=== PATIENT | female | born 1945 | race Caucasian/White ===

== ENCOUNTER 2016-12-19 15:17 | Emergency (ER) | payer MEDICARE, BC ==
[2016-12-19 15:36] VITALS: BP 134/72
--- NOTE | 2016-12-19 16:46 | UC ---
Eye Complaint HPI - HPI Summary HPI Summary: This is a 71 yo female with RA, HTN and Sjogrens who presents with c/o R eye drainage, itching and blurring. She denies eye pain. She has chronic dry eyes related to Sjogrens. Denies fever, ear pain, ST or congestion. She also notes intermittent redness, edema and drainage from her ear piercing on the R side. This has been ongoing for the last 9 months. - History of Current Complaint Chief Complaint: UCEye Stated Complaint: EYE IRRITATION,EAR SKIN SWELLING - Allergies/Home Medications Allergies/Adverse Reactions: Allergies Allergy/AdvReac Type Severity Reaction Status Date / Time Celecoxib [From Celebrex] Allergy Rash Verified 12/19/16 15:38 Penicillins Allergy Rash Verified 12/19/16 15:38 Sulfa Antibiotics Allergy Rash Verified 12/19/16 15:38 Home Medications: Home Medications Ascorbic Acid TAB* [Vitamin C TAB*] 500 mg PO DAILY 12/19/16 [History Confirmed 12/19/16] Aspirin [Aspirin 81 MG TAB] 81 mg PO DAILY 12/19/16 [History Confirmed 12/19/16] Calcium Citrate-Vitamin D [Citracal + D3 Maximum 315-250 mg-Unit] 1 tab PO DAILY 12/19/16 [History Confirmed 12/19/16] Golimumab [Simponi] 50 mg SC MONTHLY 12/19/16 [History Confirmed 12/19/16] Metoprolol Tartrate TAB* [Lopressor TAB*] 50 mg PO DAILY 12/19/16 [History Confirmed 12/19/16] Mirabegron (NF) [Myrbetriq (NF)] 50 mg PO DAILY 12/19/16 [History Confirmed 08/01] Multiple Vitamins W/ Minerals [Centrum Silver 50+Women] 1 tab PO DAILY 12/19/16 [History Confirmed 12/19/16] [place]-3 Fatty Acids [Fish Oil] 1,500 mg PO DAILY 12/19/16 [History Confirmed 08/01] PMH/Surg Hx/FS Hx/Imm Hx Previously Healthy: No - HTN, RA, Sjogrens - Surgical History Surgical History: Yes Surgery Procedure, Year, and Place: 2 c-sections. laparscopy and laparotomy for infertility - Family History Known Family History: Positive: None - Social History Alcohol Use: Rare Substance Use Type: None Smoking Status (MU): Never Smoked Tobacco Review of Systems Constitutional: Negative Skin: Negative Eyes: Blurred Vision, Drainage, Eye Redness ENT: Negative Respiratory: Negative Cardiovascular: Negative Gastrointestinal: Negative Genitourinary: Negative Motor: Negative Neurovascular: Negative Musculoskeletal: Negative Neurological: Negative Psychological: Negative All Other Systems Reviewed And Are Negative: Yes Physical Exam Triage Information Reviewed: Yes Appearance: Well-Appearing Vital Signs: Initial Vital Signs Temp 98.9 F 12/19/16 15:29 Pulse 80 12/19/16 15:29 Resp 16 12/19/16 15:29 BP 134/72 12/19/16 15:29 Pulse Ox 99 12/19/16 15:29 Vital Signs Reviewed: Yes Eyes: Positive: Conjunctiva Inflamed, Discharge - mild dc ENT: Positive: Pharynx normal, TMs normal. Negative: Pharyngeal erythema, Tonsillar swelling, Tonsillar exudate Neck: Positive: Supple, Nontender, No Lymphadenopathy Respiratory: Positive: Lungs clear. Negative: Crackles, Rhonchi, Wheezing Cardiovascular: Positive: RRR, No Murmur Abdomen Description: Positive: Nontender, Soft Musculoskeletal Exam: Normal Musculoskeletal: Positive: Strength Intact Neurological: Positive: Alert, Muscle Tone Normal Psychological Exam: Normal Skin: Positive: Other - skin surrounding R ear piercing is mildly inflamed and flaking. No gross erythema or purulent drainage. Eye Complaint Course/Dx - Course Course Of Treatment: This is a 71 yo female with c/o R eye drainage and inflammation along with intermittent inflammation of the R ear lobe. Treat for R eye conjunctivitis. Recommend removing earring until skin heals. - Differential Dx/Diagnosis Differential Diagnosis/HQI/PQRI: Conjunctivitis, Periorbital Cellulitis, Uveitis Provider Diagnoses: 1. R conjunctivitis. 2. Contact dermatitis - R earlobe Discharge - Discharge Plan Condition: Stable Disposition: HOME Prescriptions: Ciprofloxacin 0.3% OPTH.ZAYRA* [Cipro 0.3% Opth*] 1 drop RIGHT EYE Q2H #1 btl Patient Education Materials: Conjunctivitis (ED) Referrals: No Primary Care Phys,NOPCP [Primary Care Provider] - Additional Instructions: Activity: as tolerated Instructions: 1. Use antibiotic drops as directed 2. Follow up with your PCP if symptoms persist
== END 2016-12-19 16:56 | disposition home or self-care (01) ==
LOC: UCEAST 15:17
DX: H10.31 Unspecified acute conjunctivitis, right eye (principal); L25.9 Unspecified contact dermatitis, unspecified cause; I10 Essential (primary) hypertension; M06.9 Rheumatoid arthritis, unspecified; Z79.82 Long term (current) use of aspirin; Z88.0 Allergy status to penicillin; Z88.2 Allergy status to sulfonamides; Z88.8 Allergy status to other drugs, medicaments and biological substances
CPT/HCPCS: 99212; G0463

== ENCOUNTER 2017-10-17 01:18 | Emergency (ER) | payer MEDICARE, BC ==
--- NOTE | 2017-10-17 01:40 | ED ---
Upper Extremity Pain - HPI Summary HPI Summary: Complains of pain and stiffness at MCP joints of left thumb and left index finger starting yesterday, with pain radiating down towards wrist with extension and flexion of thumb and index finger. Denies trauma. Has been doing a lot of gardening. Denies any other pain or symptoms. History of RA, thoracic aneurysm, asthma, A. fib. Nonsmoker. Has not taken any medications or used ice. - History of Current Complaint Chief Complaint: EDExtremityUpper Stated Complaint: LT HAND PAIN Time Seen by Provider: 10/17/17 01:28 Hx Obtained From: Patient Mechanism Of Injury: Unknown Onset/Duration: Started Hours Ago Timing: Constant Severity Initially: Mild Severity Currently: Moderate Pain Location: Hand, Finger Character: Aching, Throbbing Aggravating Factor(s): Flexion, Extension Alleviating Factor(s): Nothing Associated Signs & Symptoms: Positive: Negative - Risk Factors Septic Arthritis Risk Factor: Pre-existing Joint Disease - Allergies/Home Medications Allergies/Adverse Reactions: Allergies Allergy/AdvReac Type Severity Reaction Status Date / Time MS Celecoxib [From Celebrex] Allergy Rash Verified 10/17/17 01:27 MS Penicillins [Penicillins] Allergy Rash Verified 10/17/17 01:27 MS Sulfa Antibiotics Allergy Rash Verified 10/17/17 01:27 [Sulfa Antibiotics] PMH/Surg Hx/FS Hx/Imm Hx Endocrine/Hematology History: Denies: Hx Anticoagulant Therapy Cardiovascular History: Reports: Hx Hypertension History: Denies: Hx Dialysis Musculoskeletal History: Denies: Hx Osteoporosis Neurological History: Denies: Hx CVA - Surgical History Surgery Procedure, Year, and Place: 2 c-sections. laparscopy and laparotomy for infertility Infectious Disease History: No Infectious Disease History: Denies: Traveled Outside the [place] in Last 30 Days - Family History Known Family History: Positive: None - Social History Alcohol Use: Rare Substance Use Type: Reports: None Smoking Status (MU): Never Smoked Tobacco Review of Systems Constitutional: Negative Eyes: Negative ENT: Negative Cardiovascular: Negative Respiratory: Negative Gastrointestinal: Negative Genitourinary: Negative Positive: Arthralgia Skin: Negative Neurological: Negative Psychological: Normal All Other Systems Reviewed And Are Negative: Yes Physical Exam - Summary Physical Exam Summary: No erythema, swelling, extra warmth, deformity, ecchymosis noted to left hand or joints of left thumb or index finger or wrist.. PMS intact distally. Patient can flex and extend both thumb and index finger but with pain. Patient can flex and extend left wrist but causes pain and left thumb. Triage Information Reviewed: Yes Vital Signs On Initial Exam: Initial Vitals Temp Pulse Resp BP Pulse Ox 97.8 F 64 17 160/84 97 10/17/17 01:23 10/17/17 01:23 10/17/17 01:23 10/17/17 01:23 10/17/17 01:23 Vital Signs Reviewed: Yes Appearance: Positive: Well-Appearing Skin: Positive: Warm Head/Face: Positive: Normal Head/Face Inspection Eyes: Positive: Normal Neck: Positive: Supple Respiratory/Lung Sounds: Positive: Clear to Auscultation Cardiovascular: Positive: Normal Abdomen Description: Positive: Nontender Musculoskeletal: Positive: Normal Neurological: Positive: Normal Psychiatric: Positive: Normal AVPU Assessment: Alert - [place] Coma Scale Best Eye Response: 4 - Spontaneous Best Motor Response: 6 - Obeys Commands Best Verbal Response: 5 - Oriented Coma Scale Total: 15 Diagnostics - Vital Signs Vital Signs Temp Pulse Resp BP Pulse Ox 10/17/17 01:23 97.8 F 64 17 160/84 97 - Laboratory Lab Statement: Any lab studies that have been ordered have been reviewed, and results considered in the medical decision making process. - Radiology hand Xray Interpretation: No Acute Changes Radiology Interpretation Completed By: ED Physician Course/Dx - Course Course Of Treatment: Complains of pain and stiffness at MCP joints of left thumb and left index finger starting yesterday, with pain radiating down towards wrist with extension and flexion of thumb and index finger. Denies trauma. Has been doing a lot of gardening. Denies any other pain or symptoms. History of RA, thoracic aneurysm, asthma, A. fib. Nonsmoker. Has not taken any medications or used ice. No erythema, swelling, extra warmth, deformity, ecchymosis noted to left hand or joints of left thumb or index finger or wrist.. PMS intact distally. Patient can flex and extend both thumb and index finger but with pain. Patient can flex and extend left wrist but causes pain and left thumb. X-ray hand negative for acute process. Likely symptomatic patient's RA. Rx for tramadol. Follow-up with rheumatology - Diagnoses Provider Diagnoses: Hand pain, left Discharge - Sign-Out/Discharge Documenting (check all that apply): Discharge/Admit/Transfer - Discharge Plan Condition: Stable Disposition: HOME Patient Education Materials: Arthralgia (ED) Referrals: Scott Dorado MD [Primary Care Provider] - Additional Instructions: Follow-up with your ob/gyn physician. Return to the ED for any new or worsening symptoms - Billing Disposition and Condition Condition: STABLE Disposition: Home
[2017-10-17] MEDS ORDERED: traMADol TAB* 50 MG PO ONE (03:12)
[2017-10-17] MEDS ORDERED: Ibuprofen TAB* 600 MG PO ONE (03:20)
[2017-10-17 03:46] VITALS: BP 147/91
--- NOTE | 2017-10-17 07:41 | RAD ---
HISTORY: thumb and index MCP joint pain COMPARISONS: None VIEWS: 4, Frontal, lateral, and oblique views of the left hand. Evaluation of the proximal phalanx of the fourth digit is limited by metallic jewelry FINDINGS: BONE DENSITY: Normal. BONES: There is no displaced fracture. JOINTS: There is no arthropathy. ALIGNMENT: There is no dislocation. SOFT TISSUES: Unremarkable. OTHER FINDINGS: None. IMPRESSION: NO ACUTE OSSEOUS INJURY. IF SYMPTOMS PERSIST, RECOMMEND REPEAT IMAGING.
== END 2017-10-17 03:45 | disposition home or self-care (01) ==
LOC: ED 01:18
DX: M25.542 Pain in joints of left hand (principal); M06.9 Rheumatoid arthritis, unspecified; I71.2 Thoracic aortic aneurysm, without rupture; I48.91 Unspecified atrial fibrillation; J45.909 Unspecified asthma, uncomplicated; Z88.0 Allergy status to penicillin; Z88.3 Allergy status to other anti-infective agents; Z88.8 Allergy status to other drugs, medicaments and biological substances
CPT/HCPCS: 99282; A9270-GY

== ENCOUNTER 2017-11-14 15:11 | Emergency (ER) | payer MEDICARE, BC ==
[2017-11-14] MEDS ORDERED: Tetan/Diph/Pertus SYR(Tdap)* 0.5 ML SYR(BOOSTRIX) use SYR IM ONE (16:10)
--- NOTE | 2017-11-14 17:25 | UC ---
Laceration HPI - HPI Summary HPI Summary: 72 y/o female presents to the urgent care c/o laceration of the side of her RT thumb s/p slicing a cucumber w/ a slicer around 1 hr ago today. Pt is unsure of last Tetanus vaccine. Pt states bleeding stopped w/ pressure. Pain is 1/10 and has FROM of thumb. Pt denies numbness or tingling sensation over the Rt thumb, hand pain, SOB, chest pain, abdominal pain, N/V/D - History Of Current Complaint Chief Complaint: UCLaceration Stated Complaint: THUMB LAC Time Seen by Provider: 11/14/17 16:53 Hx Obtained From: Patient Laceration Location: Finger - Rt thumb Mechanism Of Injury: Sharp Trauma Onset/Duration: Sudden Onset, Lasting Hours - 1 hr Severity: Mild Pain Intensity: 1 Pain Scale Used: 0-10 Numeric Aggravating Factors: Other: - touch Related History: Dominant Hand Right - Allergies/Home Medications Allergies/Adverse Reactions: Allergies Allergy/AdvReac Type Severity Reaction Status Date / Time celecoxib [From Celebrex] Allergy Rash Verified 11/14/17 15:38 Penicillins Allergy Rash Verified 11/14/17 15:38 Sulfa (Sulfonamide Allergy Rash Verified 11/14/17 15:38 Antibiotics) Home Medications: Home Medications Ciclesonide 80 MCG MDI (NF) [Alvesco 80 MDI (NF)] 1 puff INH BID 11/14/17 [ History Confirmed 11/14/17] Fluticasone NASAL SPRAY 50MCG* [Flonase NASAL SPRAY 50MCG*] 11/14/17 [History] Folic Acid TAB* [Folvite TAB*] 1 mg PO DAILY 11/14/17 [History Confirmed ] Methotrexate [Xatmep] 2.5 mg PO 11/14/17 [History] PMH/Surg Hx/FS Hx/Imm Hx Previously Healthy: Yes Other Endocrine History: RZ Cardiovascular History: Hypertension, Atrial Fibrillation Respiratory History: Asthma Other History Of: Negative For: Anticoagulant Therapy - Surgical History Surgical History: Yes Surgery Procedure, Year, and Place: 2 c-sections. laparscopy and laparotomy for infertility - Family History Known Family History: Positive: Cardiac Disease, Hypertension, Diabetes - Social History Occupation: Retired Lives: With Family Alcohol Use: Occasionally Substance Use Type: None Smoking Status (MU): Never Smoked Tobacco - Immunization History Hx Tetanus, Diphtheria Vaccination: No Review of Systems Constitutional: Negative Skin: Other - laceration of Rt thumb s/p cutting a cucumber w/ slicer Eyes: Negative ENT: Negative Respiratory: Negative Cardiovascular: Negative Gastrointestinal: Negative Genitourinary: Negative Motor: Negative Neurovascular: Negative Musculoskeletal: Other: - Rt thumb pain s/p laceration Neurological: Negative Psychological: Negative Is Patient Immunocompromised?: No All Other Systems Reviewed And Are Negative: Yes Physical Exam - Summary Physical Exam Summary: Vital Signs Reviewed: Yes General: well developed, well nourished female sitting in the examining table w/ o any apparent distress Eye Exam: Normal Eyes: Positive: Conjunctiva Clear - PERRLA, EOMI, fundi grossly normal ENT: Positive: Normal ENT inspection, Hearing grossly normal, Pharynx normal, TMs normal Neck: Positive: Supple, Nontender, No Lymphadenopathy Respiratory: Positive: Chest non-tender, Lungs clear, Normal breath sounds, No respiratory distress Cardiovascular: Positive: RRR, No Murmur, Pulses Normal, Brisk Capillary Refill Abdomen Description: Positive: Nontender, No Organomegaly, Soft. Negative: CVA Tenderness (R), CVA Tenderness (L) Bowel Sounds: Positive: Present Musculoskeletal: Positive: Strength Intact, ROM Intact, No Edema Neurological: Positive: Alert, Muscle Tone Normal Psychological Exam: Normal Skin: Positive:superficial avulse laceration semilunar in shape on lateral aspect of distal Rt thumb about 1.5 cm in size, bleeding stopped, no foreign body observed. mild tenderness to palpation, FROM of RT thumb and hand, sensation intact, capillary refill brisk, and pulses WNL. Triage Information Reviewed: Yes Vital Signs: Initial Vital Signs Temp 97.9 F 11/14/17 15:34 Pulse 62 11/14/17 15:34 Resp 18 11/14/17 15:34 BP 128/70 11/14/17 15:34 Pulse Ox 100 11/14/17 15:34 Laceration Repair - Laceration Repair 1 Description: Irregular - superficial avulse laceration semilunar in shape on lateral aspect of distal Rt thumb Laceration Size After Repair: Length (cm) - 1.5cm Modified For Repair: No Cleansing Completed Via Routine Prep: Yes Irrigation With Pressure Irrigation Device: Yes Closure Material: Skin Adhesive, SteriStrips - 3 Closure Method: Single Layer Suture Of: Skin Laceration Course/Dx - Course/Dx Course Of Treatment: 72 y/o female presents to the urgent care c/o laceration of the side of her RT thumb s/p slicing a cucumber w/ a slicer around 1 hr ago today. Pt is unsure of last Tetanus vaccine. Pt states bleeding stopped w/ pressure. Pain is 1/10 and has FROM of thumb. Pt denies numbness or tingling sensation over the Rt thumb, hand pain, SOB, chest pain, abdominal pain, N/V/ D.Hx obtained.LACERATION PROCEDURE NOTE: . Copious irrigation was done with saline and the wound explored. There was no FB or deep structure injury noted. wound cleaned w/ Iodine swabs. Laceration closed w/ skin adhesive and 3 steri- strips. Wound dressed w/ sterile gauze.The Pt tolerated the procedure well without adverse effects. Neurovascular intact and FROM of Rt thumb. Tdap ordered and applied by nurse. Pt advised if any signs of infection develop to immediately return to the urgent care of PCP for further management and treatment. Pt understood and agreed and left the clinic ambulating A&Ox3. - Differential Dx - Laceration/Wound Differental Diagnoses: Abrasion, Avulsion, Dehiscence, Laceration, Puncture Wound, Tendon Laceration Provider Diagnoses: 1- Rt thumb laceration repair Discharge - Sign-Out/Discharge Documenting (check all that apply): Patient Departure - D/c home - Discharge Plan Condition: Stable Disposition: HOME Prescriptions: Bacitracin OINTMENT* 1 applic TOPICAL BID #1 tube Patient Education Materials: Laceration (ED), Skin Adhesive Care (ED) Referrals: Amish De La Cruz DO [Primary Care Provider] - 1 Week Additional Instructions: 1-Please apply topical antibiotic over the wound after the skin adhesive comes off. Keep wound clean and dry 2-Take Tylenol PO q6-8hrs prn for pain or swelling. 4- If you develop fever or redness around your thumb please return to the Urgent care or f/u w/ your PCP. Per institutional requirements, I have reviewed the chart, however, I was not consulted specifically or made aware of this patient by the above midlevel provider. I did not personally evaluate, interact with , or disposition this patient. - Billing Disposition and Condition Condition: STABLE Disposition: Home
[2017-11-14 18:06] VITALS: BP 130/72
== END 2017-11-14 17:45 | disposition home or self-care (01) ==
LOC: UCEAST 15:11
DX: S61.011A Laceration without foreign body of right thumb without damage to nail, initial encounter (principal); I10 Essential (primary) hypertension; Z88.1 Allergy status to other antibiotic agents; Z88.0 Allergy status to penicillin; Z88.2 Allergy status to sulfonamides; W45.8XXA Other foreign body or object entering through skin, initial encounter; Y92.9 Unspecified place or not applicable; Y93.89 Activity, other specified
CPT/HCPCS: 12001; 90715; 99211; G0463

== ENCOUNTER 2018-04-17 22:12 | Emergency (ER) | payer MEDICARE, BC ==
[2018-04-17 22:42] LABS: ABS Basophils 0 10^3/ul (0-0.2); ABS Lymphocytes 0.8 10^3/ul (1.0-4.8); ABS Monocytes 0.1 10^3/ul (0-0.8); ABS Neutrophils 3.7 10^3/ul (1.5-7.7); ABS Nucleated RBC 0 10^3/ul; Eosinophil % 18.3 %; Hematocrit 41 % (35-47); Hemoglobin 13.7 g/dl (12.0-16.0); Lymphocyte % 14.7 %; Mean Corpuscular HGB Conc 33 g/dl (31-36); Mean Corpuscular Hemoglobin 30 pg (27-31); Mean Corpuscular Volume 89 fL (80-97); Mean Platelet Volume 8.4 fL (7.4-10.4); Nucleated Red Blood Cells % 0.1; Platelet Count 314 10^3/ul (150-450); Red Blood Count 4.64 10^6/ul (4.00-5.40); Red Cell Distribution Width 14 % (10.5-15); White Blood Count 5.7 10^3/ul (3.5-10.8)
[2018-04-17] MEDS ORDERED: Morphine VIAL* 4 MG/ML VIAL (1 ml vial) IV ONE (22:51)
[2018-04-17 22:52] LABS: INR 0.93 (0.77-1.02)
[2018-04-17 22:58] LABS: Albumin 3.5 g/dL (3.2-5.2); Albumin/Globulin Ratio 0.8 (1-3); BUN/Creatinine Ratio 35.4 (8-20); C Reactive Protein 15.76 mg/L (<8.01); Calcium 9.7 mg/dL (8.6-10.3); EGFR Non-African American 90.1 (>60); Globulin 4.2 g/dL (2-4); Potassium 4.6 mmol/L (3.5-5.0); Total Bilirubin 0.3 mg/dL (0.2-1.0); Total Protein 7.7 g/dL (6.4-8.9)
--- NOTE | 2018-04-17 23:07 | ED ---
Abdominal Pain/Male - HPI Summary HPI Summary: Pt is a 72 y/o female who presents to the ED c/o diffuse abdominal pain. She states the pain suddenly came on at 19:00 tonight, and has continued to get worse. She also c/o N/V. Pt denies any fever, diarrhea, constipation, dysuria, hematuria, CP, or SOB. PSHx c-sections, laparoscopies, fallopian tube removal. - History of Current Complaint Chief Complaint: EDAbdPain Stated Complaint: ABD PAIN Time Seen by Provider: 04/17/18 22:27 Hx Obtained From: Patient Onset/Duration: Sudden Onset, Lasting Hours - 19:00, Worse Since Timing: Constant Severity Currently: Moderate Pain Intensity: 5 Pain Scale Used: 0-10 Numeric Location: Diffuse Aggravating Factor(s): Nothing Alleviating Factor(s): Nothing Associated Signs And Symptoms: Positive: Negative - Allergies/Home Medications Allergies/Adverse Reactions: Allergies Allergy/AdvReac Type Severity Reaction Status Date / Time celecoxib [From Celebrex] Allergy Rash Verified 01/24/18 11:52 Penicillins Allergy Rash Verified 01/24/18 11:52 Sulfa (Sulfonamide Allergy Rash Verified 01/24/18 11:52 Antibiotics) PMH/Surg Hx/FS Hx/Imm Hx Endocrine/Hematology History: Denies: Hx Anticoagulant Therapy, Hx Diabetes, Hx Anemia Cardiovascular History: Reports: Hx Hypertension - during GI History: Denies: Hx Jaundice History: Denies: Hx Dialysis Musculoskeletal History: Denies: Hx Osteoporosis Neurological History: Denies: Hx CVA - Surgical History Surgery Procedure, Year, and Place: 2 c-sections. laparscopy and laparotomy for infertility. fallopian tube removal Infectious Disease History: No Infectious Disease History: Denies: Traveled Outside the [place] in Last 30 Days - Family History Known Family History: Positive: Cardiac Disease, Hypertension, Diabetes - Social History Alcohol Use: Rare Hx Substance Use: No Substance Use Type: Reports: None Hx Tobacco Use: No Smoking Status (MU): Never Smoked Tobacco Review of Systems Negative: Fever Negative: Chest Pain Negative: Shortness Of Breath Positive: Abdominal Pain, Vomiting, Nausea. Negative: Diarrhea, Other - constipation Negative: burning, hematuria All Other Systems Reviewed And Are Negative: Yes Physical Exam - Summary Physical Exam Summary: Appearance: Well appearing, no pain distress Skin: warm, dry, reflects adequate perfusion Head/face: normal Eyes: EOMI, THELMA ENT: mucous membranes moist Neck: supple, non-tender Respiratory: CTA, breath sounds present Cardiovascular: RRR, pulses symmetrical Abdomen: soft, left CVA tenderness, suprapubic tenderness Bowel Sounds: present Musculoskeletal: normal, strength/ROM intact Neuro: normal, sensory motor intact, A&Ox3 Triage Information Reviewed: Yes Vital Signs On Initial Exam: Initial Vitals Temp Pulse Resp BP Pulse Ox 98.1 F 62 16 145/74 98 04/17/18 22:15 04/17/18 22:15 04/17/18 22:15 04/17/18 22:15 04/17/18 22:15 Vital Signs Reviewed: Yes Diagnostics - Vital Signs Vital Signs Temp Pulse Resp BP Pulse Ox 04/17/18 22:15 98.1 F 62 16 145/74 98 - Laboratory Lab Results: Lab Results 04/17/18 04/17/18 04/17/18 Range/Units 22:34 22:34 22:34 WBC 5.7 (3.5-10.8) 10^3/ul RBC 4.64 (4.00-5.40) 10^6/ul Hgb 13.7 (12.0-16.0) g/dl Hct 41 (35-47) % MCV 89 (80-97) fL MCH 30 (27-31) pg MCHC 33 (31-36) g/dl RDW 14 (10.5-15) % Plt Count 314 (150-450) 10^3/ul MPV 8.4 (7.4-10.4) fL Neut % (Auto) 64.2 % Lymph % (Auto) 14.7 % Webb % (Auto) 2.5 % Eos % (Auto) 18.3 % Baso % (Auto) 0.3 % Absolute Neuts (auto) 3.7 (1.5-7.7) 10^3/ul Absolute Lymphs (auto) 0.8 L (1.0-4.8) 10^3/ul Absolute Monos (auto) 0.1 (0-0.8) 10^3/ul Absolute Eos (auto) 1.0 H (0-0.6) 10^3/ul Absolute Basos (auto) 0 (0-0.2) 10^3/ul Absolute Nucleated RBC 0 10^3/ul Nucleated RBC % 0.1 INR (Anticoag Therapy) 0.93 (0.77-1.02) Sodium 139 (135-145) mmol/L Potassium 4.6 (3.5-5.0) mmol/L Chloride 102 (101-111) mmol/L Carbon Dioxide 30 (22-32) mmol/L Anion Gap 7 (2-11) mmol/L BUN 23 (6-24) mg/dL Creatinine 0.65 (0.51-0.95) mg/dL Est GFR ( Amer) 109.0 (>60) Est GFR (Non-Af Amer) 90.1 (>60) BUN/Creatinine Ratio 35.4 H (8-20) Glucose 116 H (70-100) mg/dL Lactic Acid (0.5-2.0) mmol/L Calcium 9.7 (8.6-10.3) mg/dL Total Bilirubin 0.30 (0.2-1.0) mg/dL AST 36 (13-39) U/L ALT 37 (7-52) U/L Alkaline Phosphatase 95 (34-104) U/L Total Creatine Kinase 203 (10-223) U/L Troponin I 0.00 (<0.04) ng/mL C-Reactive Protein 15.76 H (<8.01) mg/L B-Natriuretic Peptide (<=100) pg/mL Total Protein 7.7 (6.4-8.9) g/dL Albumin 3.5 (3.2-5.2) g/dL Globulin 4.2 H (2-4) g/dL Albumin/Globulin Ratio 0.8 L (1-3) Lipase 25 (11.0-82.0) U/L 04/17/18 04/17/18 Range/Units 22:34 22:34 WBC (3.5-10.8) 10^3/ul RBC (4.00-5.40) 10^6/ul Hgb (12.0-16.0) g/dl Hct (35-47) % MCV (80-97) fL MCH (27-31) pg MCHC (31-36) g/dl RDW (10.5-15) % Plt Count (150-450) 10^3/ul MPV (7.4-10.4) fL Neut % (Auto) % Lymph % (Auto) % Webb % (Auto) % Eos % (Auto) % Baso % (Auto) % Absolute Neuts (auto) (1.5-7.7) 10^3/ul Absolute Lymphs (auto) (1.0-4.8) 10^3/ul Absolute Monos (auto) (0-0.8) 10^3/ul Absolute Eos (auto) (0-0.6) 10^3/ul Absolute Basos (auto) (0-0.2) 10^3/ul Absolute Nucleated RBC 10^3/ul Nucleated RBC % INR (Anticoag Therapy) (0.77-1.02) Sodium (135-145) mmol/L Potassium (3.5-5.0) mmol/L Chloride (101-111) mmol/L Carbon Dioxide (22-32) mmol/L Anion Gap (2-11) mmol/L BUN (6-24) mg/dL Creatinine (0.51-0.95) mg/dL Est GFR ( Amer) (>60) Est GFR (Non-Af Amer) (>60) BUN/Creatinine Ratio (8-20) Glucose (70-100) mg/dL Lactic Acid 0.6 (0.5-2.0) mmol/L Calcium (8.6-10.3) mg/dL Total Bilirubin (0.2-1.0) mg/dL AST (13-39) U/L ALT (7-52) U/L Alkaline Phosphatase (34-104) U/L Total Creatine Kinase (10-223) U/L Troponin I (<0.04) ng/mL C-Reactive Protein (<8.01) mg/L B-Natriuretic Peptide 90 (<=100) pg/mL Total Protein (6.4-8.9) g/dL Albumin (3.2-5.2) g/dL Globulin (2-4) g/dL Albumin/Globulin Ratio (1-3) Lipase (11.0-82.0) U/L Result Diagrams: 04/17/18 22:34 04/17/18 22:34 Lab Statement: Any lab studies that have been ordered have been reviewed, and results considered in the medical decision making process. - CT CT A/P CT Interpretation Completed By: Radiologist Summary of CT Findings: 1. Splenic lesion, possibly hemangioma. 2. Small hiatus hernia. 3. Uterine fibroid. 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 5. Colonic diverticulosis. ED physician reviewed radiology report. - EKG 23:00 Cardiac Rate: NL - 60 bpm EKG Rhythm: Sinus Rhythm ST Segment: Normal Summary of EKG Findings: Nl axis, nl intervals, Q waves in inferior leads Re-Evaluation - Re-Evaluation First Eval Re-Evaluation Time: 00:26 Change: Unchanged Comment: Pt appears comfortable but states she still has pain. She was given a Toradol injection. Abdominal Pain Fem Course/Dx - Course Course Of Treatment: Nurse's notes reviewed. Patient with mild diffuse intermittent abdominal discomfort. Laboratories are benign. Urinalysis is negative. CT scan shows uterine fibroid but no acute inflammatory source. She was treated with Toradol with relief. She'll continue on NSAID at home and follow up with primary care physician. - Diagnoses Differential Diagnosis/HQI/PQRI: Appendicitis, Constipation, Diverticulitis, Gall Bladder Disease, Pancreatitis, Peptic Ulcer Disease, Renal Colic, Urinary Tract Infection Provider Diagnoses: Abdominal pain, Uterine fibroid Discharge - Sign-Out/Discharge Documenting (check all that apply): Patient Departure - Discharge - Discharge Plan Condition: Improved Disposition: HOME Patient Education Materials: Pelvic Pain in Women (ED), Uterine Artery Embolization for Fibroids (DC) Referrals: Amish De La Cruz DO [Primary Care Provider] - Additional Instructions: Tylenol, ibuprofen as needed for discomfort. Return with fever, increased pain , vomiting/diarrhea, worse or other concerns. Call first thing in the morning to schedule prompt follow-up with your family physician. - Billing Disposition and Condition Condition: IMPROVED Disposition: Home - Attestation Statements Document Initiated by Brijesh: Yes Documenting Scribe: Cynthia Whitney Provider For Whom Scrinocencioe is Documenting (Include Credential): Audi Patterson MD Scribe Attestation: Cynthia Parra scribed for Audi Patterson MD on 04/18/18 at 0152. Scribe Documentation Reviewed: Yes Provider Attestation: The documentation as recorded by the Cynthia campos accurately reflects the service I personally performed and the decisions made by me, Audi Patterson MD Status of Scribe Document: Viewed
[2018-04-17] MEDS ORDERED: Iohexol 300* (CONTRAST) 10 ML SDV IV ONE (23:34)
[2018-04-18] MEDS ORDERED: Ketorolac INJ* 30 MG/ML 1 ML VIAL IV PUSH ONE (00:30)
[2018-04-18 00:37] LABS: Urine Appearance Clear; Urine Bilirubin Negative (Negative); Urine Blood Negative (Negative); Urine Color Yellow; Urine Glucose Negative (Negative); Urine Ketones Negative (Negative); Urine Nitrite Negative (Negative); Urine Protein Negative (Negative); Urine Urobilinogen Negative (Negative)
[2018-04-18 01:29] VITALS: BP 125/78
== END 2018-04-18 01:27 | disposition home or self-care (01) ==
LOC: ED 22:12
DX: R10.84 Generalized abdominal pain (principal); D25.9 Leiomyoma of uterus, unspecified; K76.9 Liver disease, unspecified; K44.9 Diaphragmatic hernia without obstruction or gangrene; K57.30 Diverticulosis of large intestine without perforation or abscess without bleeding; R11.2 Nausea with vomiting, unspecified; Z88.0 Allergy status to penicillin; Z88.2 Allergy status to sulfonamides; Z88.8 Allergy status to other drugs, medicaments and biological substances
CPT/HCPCS: 36415; 74177; 80053; 81003; 82550; 83605; 83690; 83880; 84484; 85025; 85610; 86140; 93005; 96374; 96375; 99283; J1885; J2270; Q9967